=== PATIENT | male | born 1940 | race Caucasian/White ===

== ENCOUNTER → 2017-12-10 | Outpatient (CLI) | payer MEDICARE, BC | END | disposition home or self-care (01) | LOC: CVU 06:45 | PROVIDERS: ATTEND Internal Medicine Cardiovascular Disease | DX: I65.23 Occlusion and stenosis of bilateral carotid arteries (principal); I45.10 Unspecified right bundle-branch block; I25.10 Atherosclerotic heart disease of native coronary artery without angina pectoris; I10 Essential (primary) hypertension; E78.5 Hyperlipidemia, unspecified; Z87.891 Personal history of nicotine dependence; Z95.5 Presence of coronary angioplasty implant and graft | CPT/HCPCS: 78452; 93017; 93306; 93880; A9502 ==

== ENCOUNTER 2018-03-06 14:18 | Emergency (ER) | payer MEDICARE, BC ==
[~2018-03-06] VITALS: Ht 177.8 cm; Wt 86.0 kg
[2018-03-06] MEDS ORDERED: LISI-167 PO (14:36)
[2018-03-06] MEDS ORDERED: ASPI-496 PO (14:36)
[2018-03-06] MEDS ORDERED: ATOR-2 PO (14:36)
[2018-03-06] MEDS ORDERED: LEVO50TA5 PO (14:36)
[2018-03-06] MEDS ORDERED: BLOOD THINNER (14:52)
[2018-03-06] MEDS ORDERED: CLOP75TA52 PO (15:23)
[2018-03-06 15:33] LABS: BASOPHILS # (AUTO) 0.01 x10^3/uL (0-0.1); BASOPHILS % (AUTO) 0 % (0-1); EOSINOPHILS # (AUTO) 0.09 x10^3/uL (0-0.4); EOSINOPHILS % (AUTO) 2 % (1-7); LYMPHOCYTES # (AUTO) 1.36 x10^3/uL (1-3.4); LYMPHOCYTES % (AUTO) 22 % (22-44); MD NO; MEAN CORPUSCULAR HEMOGLOBIN 29.9 pg (27.5-34.5); MEAN CORPUSCULAR VOLUME 90.6 fL (81-97); MEAN PLATELET VOLUME 8.4 fL (7.4-10.4); MONOCYTES # (AUTO) 0.43 x10^3/uL (0.2-0.8); MONOCYTES % (AUTO) 7 % (2-9); NEUTROPHILS # (AUTO) 4.22 x10^3/uL (1.8-6.8); NEUTROPHILS % (AUTO) 69 % (42-75); PLATELET COUNT 245 x10^3/uL (130-400); RED BLOOD COUNT 4.84 x10^6/uL (4.38-5.82); RED CELL DISTRIBUTION WIDTH 15.2 % (9.4-14.8)
[2018-03-06 15:37] LABS: INTERNATIONAL NORMALIZED RATIO 1.03 (0.93-1.1); PROTHROMBIN TIME 10.6 Seconds (9.6-11.5)
[2018-03-06 15:40] LABS: ALBUMIN 3.6 g/dL (3.4-5.0); ANION GAP 6 mmol/L (5-15); CALCIUM 8.6 mg/dL (8.5-10.1); CHLORIDE 109 mmol/L (98-107)
[2018-03-06 15:46] LABS: ALANINE AMINOTRANSFERASE 29 U/L (12-78); ALKALINE PHOSPHATASE 59 U/L (45-117); BILIRUBIN,TOTAL 1.2 mg/dL (0.2-1.0); CREATININE 1.24 mg/dL (0.7-1.3); TOTAL PROTEIN 6.5 g/dL (6.4-8.2); TROPONIN I < 0.015 ng/mL (0.000-0.045)
[2018-03-06 18:36] LABS: TROPONIN I < 0.015 ng/mL (0.000-0.045)
[2018-03-06 18:56] VITALS: BP 122/75
== END 2018-03-06 19:34 | disposition home or self-care (01) ==
LOC: ED 19:28
DX: R07.89 Other chest pain (principal); I25.10 Atherosclerotic heart disease of native coronary artery without angina pectoris; Z87.891 Personal history of nicotine dependence
CPT/HCPCS: 36415; 71045; 80053; 84484; 85025; 85610; 85730; 93005; 99285

== ENCOUNTER → 2020-09-21 | Outpatient (CLI) | payer MEDICARE, BC ==
[~2020-09-21] MED LIST: ASPI-496 PO; ATOR-2 PO; BLOOD THINNER; CLOP75TA52 PO; LEVO50TA5 PO; LISI-167 PO
== END | disposition home or self-care (01) ==
LOC: CFH 08:43
PROVIDERS: ATTEND Nurse Practitioner Family
DX: R91.8 Other nonspecific abnormal finding of lung field (principal)
CPT/HCPCS: 71250

== ENCOUNTER → 2020-10-06 | Outpatient (CLI) | payer MEDICARE, BC | END | disposition home or self-care (01) | LOC: PETCFH 08:13 | PROVIDERS: ATTEND Nurse Practitioner Family | DX: R91.1 Solitary pulmonary nodule (principal); R91.8 Other nonspecific abnormal finding of lung field; R59.9 Enlarged lymph nodes, unspecified | CPT/HCPCS: 78815; A9552 ==

== ENCOUNTER → 2020-10-17 | Outpatient (CLI) | payer MEDICARE, BC ==
[~2020-10-17] MED LIST changes: +ASPI81TA45 PO; +CYAN-27 PO; +LEVO125T5 PO; +LISI5TAB7 PO; +NITR0.4T28 SL
== END | disposition home or self-care (01) ==
LOC: CFH 07:18
PROVIDERS: ATTEND Internal Medicine
DX: R91.1 Solitary pulmonary nodule (principal); I77.810 Thoracic aortic ectasia
CPT/HCPCS: 71250

== ENCOUNTER 2020-10-19 11:53 | Day surgery (SDC) | payer MEDICARE, BC ==
[2020-10-17 11:09] LABS: CALCIUM 8.9 mg/dL (8.5-10.1); CHLORIDE 108 mmol/L (98-107)
[2020-10-17 11:13] LABS: ALANINE AMINOTRANSFERASE 42 U/L (12-78); ALBUMIN 3.7 g/dL (3.4-5.0); ALKALINE PHOSPHATASE 81 U/L (45-117); ANION GAP 4 mmol/L (5-15); BILIRUBIN,TOTAL 2.4 mg/dL (0.2-1.0); CREATININE 1.04 mg/dL (0.7-1.3); TOTAL PROTEIN 6.5 g/dL (6.4-8.2)
[~2020-10-19] VITALS: Ht 176.5 cm; Wt 85.6 kg
[2020-10-19 12:12] VITALS: BP 149/89
[2020-10-19] MEDS ORDERED: LACTATED RINGERS 1,000 ML IV SCH (12:30)
[2020-10-19] MEDS ORDERED: CHLORHEXIDINE 15 ML UDC MM ONE (12:30)
[2020-10-19] MEDS ORDERED: CHLORHEXIDINE 15 ML UDC ONE (12:32)
[2020-10-19] MEDS ORDERED: FENTANYL PF 250 MCG/5ML ONE (13:48)
[2020-10-19] MEDS ORDERED: PROPOFOL 50 ML ONE ×2 (13:49→15:30)
[2020-10-19] MEDS ORDERED: ONDANSETRON 2MG/ML, 2ML ONE (14:33)
[2020-10-19] MEDS ORDERED: SUCCINYLCHOLINE 20 MG/ML, 10ML ONE (14:33)
[2020-10-19] MEDS ORDERED: DEXAMETHASONE 4 MG/ML, 1ML ONE (14:33)
[2020-10-19] MEDS ORDERED: ESMOLOL 100 MG/10 ML ONE (14:33)
[2020-10-19] MEDS ORDERED: ROCURONIUM 10 MG/ML,10ML ONE (14:33)
[2020-10-19] MEDS ORDERED: HYDROmorphone 1 MG/ML, 1ML INJ IVPush PRN (15:00)
[2020-10-19] MEDS ORDERED: ONDANSETRON 2MG/ML, 2ML IVPush PRN (15:00)
[2020-10-19] MEDS ORDERED: PROMETHAZINE 25 MG/ML, 1ML IVPush PRN (15:00)
[2020-10-19] MEDS ORDERED: FENTANYL PF 100 MCG/2ML IV PRN (15:00)
[2020-10-19] MEDS ORDERED: hydrALAzine 20 MG/ML, 1ML IV PRN (15:00)
[2020-10-19] MEDS ORDERED: ACETAMINOPHEN 325 MG TABLET PO PRN (15:00)
[2020-10-19] MEDS ORDERED: OXYcodone 5 MG/5 ML ORAL.SOL UDC PO PRN (15:00)
[2020-10-19] MEDS ORDERED: LABETALOL 5MG/ML, 20ML IV PRN (15:00)
[2020-10-19] MEDS ORDERED: ALBUTEROL HFA 90 MCG/SPRAY ONE (15:54)
[2020-10-19] MEDS ORDERED: METHOCARBAMOL 1,000 MG in DEXTROSE 5% 100 ML IV ONE (16:00)
[2020-10-19] MEDS ORDERED: ALBUTEROL SULFATE 2.5 MG/3 ML NPPB PRN (16:30)
[2020-10-25] MEDS ORDERED: POLY17PO5 PO (10:09)
[2020-10-25] MEDS ORDERED: DOCU-131 PO (10:09)
== END 2020-10-19 18:50 | disposition home or self-care (01) ==
LOC: OUT 11:53 → EDSTATUS 14:00 → OUT 18:50
PROVIDERS: ATTEND Internal Medicine
DX: R91.8 Other nonspecific abnormal finding of lung field (principal); I25.10 Atherosclerotic heart disease of native coronary artery without angina pectoris; J44.9 Chronic obstructive pulmonary disease, unspecified; C61 Malignant neoplasm of prostate; E03.9 Hypothyroidism, unspecified; I12.9 Hypertensive chronic kidney disease with stage 1 through stage 4 chronic kidney disease, or unspecified chronic kidney disease; N18.31 Chronic kidney disease, stage 3a; Z95.5 Presence of coronary angioplasty implant and graft; M19.90 Unspecified osteoarthritis, unspecified site; I25.2 Old myocardial infarction; E78.00 Pure hypercholesterolemia, unspecified; F32.9 Major depressive disorder, single episode, unspecified; F41.9 Anxiety disorder, unspecified; Z98.890 Other specified postprocedural states; Z79.899 Other long term (current) drug therapy; Z79.82 Long term (current) use of aspirin
CPT/HCPCS: 31624; 31627; 31629; 31652; 36415; 71045; 80053; 88112; 88172; 88173; 88177; 88305; 93005; J0330; J1100; J2405; J2704; J3010; J7120; J7613; U0003; 76000

== ENCOUNTER → 2020-11-15 | Outpatient (CLI) | payer MEDICARE, BC ==
[~2020-11-15] MED LIST changes: +DOCU-131 PO; +OMNIPAQUE 350 MG/ML, 100ML BOTTLE ONE; +POLY17PO5 PO
== END | disposition home or self-care (01) ==
LOC: CFH 13:57
PROVIDERS: ATTEND Otolaryngology
DX: D49.89 Neoplasm of unspecified behavior of other specified sites (principal); M50.320 Other cervical disc degeneration, mid-cervical region, unspecified level; J32.9 Chronic sinusitis, unspecified; J34.89 Other specified disorders of nose and nasal sinuses; R59.9 Enlarged lymph nodes, unspecified
CPT/HCPCS: 70491; Q9967

== ENCOUNTER 2020-12-06 11:50 | Outpatient (CLI) | payer MEDICARE, BC ==
[~2020-12-06 11:50] MED LIST changes: -OMNIPAQUE 350 MG/ML, 100ML BOTTLE ONE
[2020-12-06] MEDS ORDERED: LIDOCAINE 1%, 10ML ONE (12:38)
== END 2020-12-06 23:59 | disposition home or self-care (01) ==
LOC: RAD 11:50
PROVIDERS: ATTEND Otolaryngology
DX: C96.9 Malignant neoplasm of lymphoid, hematopoietic and related tissue, unspecified (principal); Z79.899 Other long term (current) drug therapy; Z72.89 Other problems related to lifestyle; Z87.891 Personal history of nicotine dependence
CPT/HCPCS: 10005; 38505; 76942; 88305; 88333

== ENCOUNTER 2020-12-20 13:09 | Outpatient (CLI) | payer MEDICARE, BC | END 2020-12-20 23:59 | disposition home or self-care (01) | LOC: ROC 13:09 | PROVIDERS: ATTEND Radiology Radiation Oncology | DX: C01 Malignant neoplasm of base of tongue (principal); I10 Essential (primary) hypertension; J43.9 Emphysema, unspecified; J96.10 Chronic respiratory failure, unspecified whether with hypoxia or hypercapnia; I25.10 Atherosclerotic heart disease of native coronary artery without angina pectoris; I25.2 Old myocardial infarction; E78.5 Hyperlipidemia, unspecified; E03.9 Hypothyroidism, unspecified; Z85.46 Personal history of malignant neoplasm of prostate; Z79.899 Other long term (current) drug therapy; Z87.891 Personal history of nicotine dependence | CPT/HCPCS: G0463 ==

== ENCOUNTER 2020-12-28 07:08 | Outpatient (CLI) | payer MEDICARE, BC ==
[2021-01-05] MEDS ORDERED: HYDR-1067 PO (08:42)
== END 2020-12-28 23:59 | disposition home or self-care (01) ==
LOC: PETCFH 07:08
PROVIDERS: ATTEND Radiology Radiation Oncology
DX: C01 Malignant neoplasm of base of tongue (principal); R91.1 Solitary pulmonary nodule
CPT/HCPCS: 78815; A9552

== ENCOUNTER → 2020-12-29 | Outpatient (CLI) | payer MEDICARE, BC | END | disposition home or self-care (01) | LOC: STAR 13:15 | PROVIDERS: ATTEND Thoracic Surgery (Cardiothoracic Vascular Surgery) | DX: Z20.822 Contact with and (suspected) exposure to COVID-19 (principal) | CPT/HCPCS: U0003 ==

== ENCOUNTER 2021-01-13 07:13 | Outpatient (CLI) | payer MEDICARE, BC ==
[~2021-01-13 07:13] MED LIST changes: +HYDR-2214 PO
== END 2021-01-13 23:59 | disposition home or self-care (01) ==
LOC: ROC 07:13
PROVIDERS: ATTEND Radiology Radiation Oncology
DX: Z08 Encounter for follow-up examination after completed treatment for malignant neoplasm (principal); Z85.810 Personal history of malignant neoplasm of tongue; I10 Essential (primary) hypertension; I25.10 Atherosclerotic heart disease of native coronary artery without angina pectoris; J96.11 Chronic respiratory failure with hypoxia; J43.9 Emphysema, unspecified; E78.5 Hyperlipidemia, unspecified; E03.9 Hypothyroidism, unspecified; I25.2 Old myocardial infarction; Z79.899 Other long term (current) drug therapy; Z85.46 Personal history of malignant neoplasm of prostate; Z87.891 Personal history of nicotine dependence; Z72.89 Other problems related to lifestyle
CPT/HCPCS: G0463

== ENCOUNTER 2021-03-10 07:18 | Outpatient (CLI) | payer MEDICARE, BC ==
[~2021-03-10 07:18] MED LIST changes: +BENZ-17 PO; +OXYC5TAB2 PO; +RIVA15TA PO; +TRAM50TA2 PO
[2021-03-10] MEDS ORDERED: SODIUM CHLORIDE 0.9% 1,000ML ONE (08:10)
== END 2021-03-10 23:59 | disposition home or self-care (01) ==
LOC: ROC 07:18
PROVIDERS: ATTEND Radiology Radiation Oncology
DX: C01 Malignant neoplasm of base of tongue (principal); M81.0 Age-related osteoporosis without current pathological fracture; I25.10 Atherosclerotic heart disease of native coronary artery without angina pectoris; J96.11 Chronic respiratory failure with hypoxia; J43.9 Emphysema, unspecified; I10 Essential (primary) hypertension; E78.5 Hyperlipidemia, unspecified; E03.9 Hypothyroidism, unspecified; Z79.899 Other long term (current) drug therapy; Z72.89 Other problems related to lifestyle; Z87.891 Personal history of nicotine dependence
CPT/HCPCS: 96360; 96361; J7030

== ENCOUNTER 2021-03-16 08:34 | Outpatient (CLI) | payer MEDICARE, BC ==
[~2021-03-16 08:34] MED LIST changes: +SODIUM CHLORIDE 0.9% 1,000ML ONE
[2021-03-16] MEDS ORDERED: SODIUM CHLORIDE 0.9% 1,000ML ONE (11:00)
== END 2021-03-16 23:59 | disposition home or self-care (01) ==
LOC: ROC 08:34
PROVIDERS: ATTEND Radiology Radiation Oncology
DX: C01 Malignant neoplasm of base of tongue (principal); D61.818 Other pancytopenia; M81.0 Age-related osteoporosis without current pathological fracture; J96.11 Chronic respiratory failure with hypoxia; J43.9 Emphysema, unspecified; I10 Essential (primary) hypertension; I25.10 Atherosclerotic heart disease of native coronary artery without angina pectoris; E03.9 Hypothyroidism, unspecified; E78.5 Hyperlipidemia, unspecified; I25.2 Old myocardial infarction; Z79.899 Other long term (current) drug therapy; Z72.89 Other problems related to lifestyle; Z87.891 Personal history of nicotine dependence
CPT/HCPCS: 96360; 96361; J7030

== ENCOUNTER 2021-03-31 07:02 | Outpatient (CLI) | payer MEDICARE, BC ==
[~2021-03-31 07:02] MED LIST changes: -SODIUM CHLORIDE 0.9% 1,000ML ONE
== END 2021-03-31 23:59 | disposition home or self-care (01) ==
LOC: ROC 07:02
PROVIDERS: ATTEND Radiology Radiation Oncology
DX: Z08 Encounter for follow-up examination after completed treatment for malignant neoplasm (principal); Z85.810 Personal history of malignant neoplasm of tongue; E03.9 Hypothyroidism, unspecified; M81.0 Age-related osteoporosis without current pathological fracture; I25.10 Atherosclerotic heart disease of native coronary artery without angina pectoris; J96.11 Chronic respiratory failure with hypoxia; J43.9 Emphysema, unspecified; I10 Essential (primary) hypertension; E78.5 Hyperlipidemia, unspecified; I25.2 Old myocardial infarction; R42 Dizziness and giddiness; Z85.118 Personal history of other malignant neoplasm of bronchus and lung; Z79.899 Other long term (current) drug therapy; Z72.89 Other problems related to lifestyle; Z87.891 Personal history of nicotine dependence
CPT/HCPCS: G0463

== ENCOUNTER → 2021-05-01 | Outpatient (CLI) | payer MEDICARE, BC | END | disposition home or self-care (01) | LOC: ROC 07:29 | PROVIDERS: ATTEND Radiology Radiation Oncology | DX: Z08 Encounter for follow-up examination after completed treatment for malignant neoplasm (principal); Z85.810 Personal history of malignant neoplasm of tongue; M81.0 Age-related osteoporosis without current pathological fracture; I25.10 Atherosclerotic heart disease of native coronary artery without angina pectoris; J96.11 Chronic respiratory failure with hypoxia; R42 Dizziness and giddiness; J43.9 Emphysema, unspecified; I10 Essential (primary) hypertension; E78.5 Hyperlipidemia, unspecified; E03.9 Hypothyroidism, unspecified; I25.2 Old myocardial infarction; Z79.899 Other long term (current) drug therapy; Z72.89 Other problems related to lifestyle; Z87.891 Personal history of nicotine dependence | CPT/HCPCS: G0463 ==

== ENCOUNTER 2021-06-14 12:28 | Outpatient (CLI) | payer MEDICARE, BC | END 2021-06-14 23:59 | disposition home or self-care (01) | LOC: CFH 12:28 | PROVIDERS: ATTEND Internal Medicine Cardiovascular Disease | DX: I08.3 Combined rheumatic disorders of mitral, aortic and tricuspid valves (principal); I10 Essential (primary) hypertension | CPT/HCPCS: 93306 ==

== ENCOUNTER 2021-06-19 07:10 | Outpatient (CLI) | payer MEDICARE, BC | END 2021-06-19 23:59 | disposition home or self-care (01) | LOC: ROC 07:10 | PROVIDERS: ATTEND Radiology Radiation Oncology | DX: Z08 Encounter for follow-up examination after completed treatment for malignant neoplasm (principal); Z85.810 Personal history of malignant neoplasm of tongue; I10 Essential (primary) hypertension; M81.0 Age-related osteoporosis without current pathological fracture; I25.10 Atherosclerotic heart disease of native coronary artery without angina pectoris; J96.11 Chronic respiratory failure with hypoxia; R42 Dizziness and giddiness; J43.9 Emphysema, unspecified; E78.5 Hyperlipidemia, unspecified; E03.9 Hypothyroidism, unspecified; I25.2 Old myocardial infarction; Z79.899 Other long term (current) drug therapy; Z72.9 Problem related to lifestyle, unspecified; Z87.891 Personal history of nicotine dependence | CPT/HCPCS: G0463 ==